=== PATIENT | female | born 1990 | race Caucasian/White ===

== ENCOUNTER 2020-01-19 19:38 | Emergency (ER) | payer MEDICAID ==
[~2020-01-19] VITALS: Ht 154.9 cm; Wt 56.7 kg
[2020-01-19 20:14] LABS: BASOPHILS % (AUTO) 0.5 % (0.0-2.0); HEMATOCRIT 38 % (33-45); HEMOGLOBIN 12.9 g/dL (11.5-14.8); LYMPHOCYTES # (AUTO) 3.4 /CMM (0.8-4.8); LYMPHOCYTES % (AUTO) 33.8 % (20.0-44.0); MEAN CORPUSCULAR HGB CONC 34 g/dl (31.0-36.0); MEAN CORPUSCULAR VOLUME 85 fL (82-100); MONOCYTES # (AUTO) 0.9 /CMM (0.1-1.30); MONOCYTES % (AUTO) 8.5 % (2.0-12.0); NEUTROPHILS # (AUTO) 5.3 /CMM (1.8-8.9); NEUTROPHILS % (AUTO) 52.2 % (43.0-81.0); PLATELET COUNT (AUTO) 294 /CMM (150-450); RED BLOOD CELL COUNT(AUTO) 4.43 MIL/uL (4.0-5.2); WHITE BLOOD COUNT (AUTO) 10.1 K/uL (4.3-11.0)
--- NOTE | 2020-01-19 20:21 | NUR ---
PT CAME TO THE ED C/O VAGINAL BLEEDING X 1 HOUR. +SMALL AMOUNT +BRIGHT PINK. PT STATES IT HAPPENED AFTER SEXUAL INTERCOURSE. . 7 WEEKS PREGANNT PER PT. LMP 11/29/19. PT AAOX4, VSS, RESPIRATIONS EVEN AND UNLABORED ON RA W/ NAD NOTED. PT CONNECTED TO THE MONITOR AND POX
[2020-01-19 20:25] LABS: CALCIUM, SERUM 8.4 mg/dL (8.5-10.1); CREATININE 0.7 mg/dL (0.6-1.3); POTASSIUM 3.4 mmol/L (3.5-5.1)
[2020-01-19 20:30] LABS: APPEARANCE,URINE Slightly Cloudy (CLEAR); BILIRUBIN,URINE Negative (NEGATIVE); COLOR,URINE Yellow (YELLOW); KETONES,URINE Negative (NEGATIVE); LEUKOCYTE ESTERASE ,URINE Small (NEGATIVE); NITRITE, URINE Positive (NEGATIVE); PH,URINE 7.5 (5.0-8.0); PROTEIN,URINE Trace mg/dl (NEGATIVE); UGLUCOSE Negative (NEGATIVE); UROBILINOGEN,URINE 0.2 EU/dL (0.2)
[2020-01-19 20:44] LABS: BACTERIA,URINE Many /HPF (None Seen); BLOOD, URINE TRACE Ery/uL (NEGATIVE); SQUAMOUS EPITHELIAL CELL,UR Moderate /HPF (None Seen)
--- NOTE | 2020-01-19 21:07 | NUR ---
NOT A [facility] CANDITATE PER LAB
--- NOTE | 2020-01-19 21:10 | NUR ---
ATTEMPTED TO CALL [facility] FOR DOWNSTAIRS MAID, NO ANSWER
[2020-01-19 21:50] VITALS: BP 115/82
--- NOTE | 2020-01-19 21:50 | NUR ---
Patient discharged to home in stable condition. Written and verbal after care instructions given. Patient verbalizes understanding of instruction.pt. ambulatory with a steady gait
== END 2020-01-19 21:51 | disposition home or self-care (01) ==
LOC: ER 19:40
DX: O20.0 Threatened abortion (principal); O20.8 Other hemorrhage in early pregnancy
CPT/HCPCS: 36415; 76805-TC; 80048-TC; 81000-TC; 84702-TC; 85025-TC; 87086-TC; 87186-TC

== ENCOUNTER 2020-01-27 13:07 | Emergency (ER) | payer MEDICAID ==
[~2020-01-27] VITALS: Ht 157.5 cm; Wt 60.3 kg
[2020-01-27 14:02] LABS: BASOPHILS % (AUTO) 0.2 % (0.0-2.0); EOSINOPHILS % (AUTO) 4.5 % (0.0-6.0); HEMATOCRIT 38 % (33-45); HEMOGLOBIN 12.9 g/dL (11.5-14.8); LYMPHOCYTES # (AUTO) 2.6 /CMM (0.8-4.8); LYMPHOCYTES % (AUTO) 30.6 % (20.0-44.0); MEAN CORPUSCULAR HGB CONC 34 g/dl (31.0-36.0); MEAN CORPUSCULAR VOLUME 86 fL (82-100); MONOCYTES # (AUTO) 0.7 /CMM (0.1-1.30); MONOCYTES % (AUTO) 7.8 % (2.0-12.0); NEUTROPHILS # (AUTO) 4.8 /CMM (1.8-8.9); NEUTROPHILS % (AUTO) 56.9 % (43.0-81.0); PLATELET COUNT (AUTO) 283 /CMM (150-450); RED BLOOD CELL COUNT(AUTO) 4.44 MIL/uL (4.0-5.2); WHITE BLOOD COUNT (AUTO) 8.4 K/uL (4.3-11.0)
[2020-01-27 14:06] LABS: APPEARANCE,URINE Clear (CLEAR); BILIRUBIN,URINE Negative (NEGATIVE); BLOOD, URINE Negative Ery/uL (NEGATIVE); COLOR,URINE Yellow (YELLOW); KETONES,URINE Negative (NEGATIVE); LEUKOCYTE ESTERASE ,URINE Negative (NEGATIVE); NITRITE, URINE Negative (NEGATIVE); PROTEIN,URINE Negative (NEGATIVE); UGLUCOSE Negative (NEGATIVE); UROBILINOGEN,URINE 0.2 EU/dL (0.2)
--- NOTE | 2020-01-27 15:00 | NUR ---
Ultrasound at Bedside
[2020-01-27 15:51] VITALS: BP 130/72
--- NOTE | 2020-01-27 15:51 | NUR ---
No Active Bleeding at this time for d/c Patient discharged to home in stable condition. Written and verbal after care instructions given. Patient verbalizes understanding of instruction.
== END 2020-01-27 16:23 | disposition home or self-care (01) ==
LOC: ER 13:12
DX: O20.0 Threatened abortion (principal); Z3A.01 Less than 8 weeks gestation of pregnancy
CPT/HCPCS: 36415; 76856-TC; 81000-TC; 84702-TC; 85025-TC

== ENCOUNTER 2020-06-21 17:09 | Emergency (ER) | payer MEDICAID ==
[~2020-06-21] VITALS: Ht 157.5 cm; Wt 59.0 kg
--- NOTE | 2020-06-21 19:14 | NUR ---
C/O ABD PAIN & LOWER BACK PAIN, 6 WKS . - VAG BLEEDING. PT AAOX4, VSS. RR EVEN & UNLABORED. DENIES CP, SOB, DIZZINESS, N/V AT THIS TIME. WILL CONT TO MONITOR.
[2020-06-21 19:26] LABS: BILIRUBIN,URINE Negative (NEGATIVE); BLOOD, URINE Negative Ery/uL (NEGATIVE); COLOR,URINE YELLOW (YELLOW); LEUKOCYTE ESTERASE ,URINE Small (NEGATIVE); NITRITE, URINE Negative (NEGATIVE); PH,URINE 7.5 (5.0-8.0); PROTEIN,URINE Negative (NEGATIVE); UGLUCOSE Negative (NEGATIVE)
[2020-06-21 19:41] LABS: BASOPHILS % (AUTO) 0.3 % (0.0-2.0); HEMATOCRIT 38 % (33-45); HEMOGLOBIN 12.5 g/dL (11.5-14.8); LYMPHOCYTES # (AUTO) 3.2 /CMM (0.8-4.8); LYMPHOCYTES % (AUTO) 37.2 % (20.0-44.0); MEAN CORPUSCULAR HGB CONC 33 g/dl (31.0-36.0); MEAN CORPUSCULAR VOLUME 84 fL (82-100); MONOCYTES # (AUTO) 0.6 /CMM (0.1-1.30); MONOCYTES % (AUTO) 7.1 % (2.0-12.0); NEUTROPHILS # (AUTO) 4.4 /CMM (1.8-8.9); NEUTROPHILS % (AUTO) 51.4 % (43.0-81.0); PLATELET COUNT (AUTO) 330 /CMM (150-450); RED BLOOD CELL COUNT(AUTO) 4.53 MIL/uL (4.0-5.2); WHITE BLOOD COUNT (AUTO) 8.5 K/uL (4.3-11.0)
[2020-06-21 19:54] LABS: CALCIUM, SERUM 8.8 mg/dL (8.5-10.1); CREATININE 0.6 mg/dL (0.6-1.3); POTASSIUM 3.8 mmol/L (3.5-5.1)
[2020-06-21 20:20] LABS: ALBUMIN 3.8 g/dL (3.4-5.0); BILIRUBIN,DIRECT 0.1 mg/dL (0.0-0.2); BILIRUBIN,TOTAL 0.2 mg/dL (0.2-1.0); TOTAL PROTEIN, SERUM 7.6 g/dL (6.4-8.2)
[2020-06-21 20:39] LABS: BACTERIA,URINE Many /HPF (None Seen); RBC,URINE 0-2 /HPF (0-2); SQUAMOUS EPITHELIAL CELL,UR Few /HPF (None Seen)
--- NOTE | 2020-06-21 21:08 | NUR ---
Patient discharged to home in stable condition. Written and verbal after care instructions given. Patient verbalizes understanding of instruction.
[2020-06-21 21:10] VITALS: BP 124/78
== END 2020-06-21 21:11 | disposition home or self-care (01) ==
LOC: ER 17:11
DX: O23.41 Unspecified infection of urinary tract in pregnancy, first trimester (principal); Z3A.01 Less than 8 weeks gestation of pregnancy
CPT/HCPCS: 36415; 76805-TC; 80048-TC; 80076-TC; 81001; 84702-TC; 85025-TC; 85730-TC

== ENCOUNTER 2020-06-29 16:46 | Emergency (ER) | payer MEDICAID ==
[~2020-06-29] VITALS: Ht 157.5 cm; Wt 59.0 kg
[2020-06-29] MEDS ORDERED: IV NS 0.9% 1,000 ML BAG IV ONE (17:30)
[2020-06-29 17:50] LABS: MEAN CORPUSCULAR VOLUME 83 fL (82-100)
[2020-06-29 17:55] LABS: CALCIUM, SERUM 8.6 mg/dL (8.5-10.1); CREATININE 0.5 mg/dL (0.6-1.3); POTASSIUM 3.8 mmol/L (3.5-5.1)
--- NOTE | 2020-06-29 17:55 | NUR ---
us at bedside
[2020-06-29 18:01] LABS: ALBUMIN 3.6 g/dL (3.4-5.0); BILIRUBIN,DIRECT 0.1 mg/dL (0.0-0.2); BILIRUBIN,TOTAL 0.2 mg/dL (0.2-1.0); TOTAL PROTEIN, SERUM 7.2 g/dL (6.4-8.2)
[2020-06-29 18:02] LABS: BASOPHILS % (AUTO) 0.2 % (0.0-2.0); EOSINOPHILS % (AUTO) 4.6 % (0.0-6.0); HEMATOCRIT 35 % (33-45); LYMPHOCYTES # (AUTO) 2.9 /CMM (0.8-4.8); LYMPHOCYTES % (AUTO) 30.7 % (20.0-44.0); MEAN CORPUSCULAR HGB CONC 34 g/dl (31.0-36.0); MONOCYTES # (AUTO) 0.6 /CMM (0.1-1.30); MONOCYTES % (AUTO) 6.8 % (2.0-12.0); NEUTROPHILS # (AUTO) 5.4 /CMM (1.8-8.9); NEUTROPHILS % (AUTO) 57.7 % (43.0-81.0); PLATELET COUNT (AUTO) 284 /CMM (150-450); RED BLOOD CELL COUNT(AUTO) 4.27 MIL/uL (4.0-5.2); WHITE BLOOD COUNT (AUTO) 9.4 K/uL (4.3-11.0)
--- NOTE | 2020-06-29 18:03 | NUR ---
AFTABCARITOCHELLY FROM HOME TO ER BED 12. AAOX4. NOT IN RESP DISTRESS, BREATHING EVEN AND UNLABORED. BROUGHT IN FOR A SYNCOPAL EPISODE AND FELL. PER PT, SHE FELT DIZZY AND PASSED OUT. HER WITNESSED THE EPISODE. DENIES ANY HEAD TRAUMA. DENIES ANY PAIN. PT REPROTS THAT SHE IS LMP WAS BACK IN . WAS AT THE BEDSIDE FOR EVAL. ORDERS RECEIVED, NOTED AND CARRIED OUT
[2020-06-29] MEDS ORDERED: IOHEXOL-350 100 ML VIAL IV ONE (18:07)
[2020-06-29] MEDS ORDERED: IV NS 0.9% 250 ML IV ONE (18:08)
[2020-06-29 19:13] LABS: BILIRUBIN,URINE NEGATIVE (NEGATIVE); BLOOD, URINE NEGATIVE Ery/uL (NEGATIVE); COLOR,URINE YELLOW (YELLOW); LEUKOCYTE ESTERASE ,URINE TRACE (NEGATIVE); NITRITE, URINE NEGATIVE (NEGATIVE); PH,URINE 7.5 (5.0-8.0); PROTEIN,URINE NEGATIVE (NEGATIVE); UGLUCOSE NEGATIVE (NEGATIVE); UROBILINOGEN,URINE 0.2 EU/dL (0.2)
[2020-06-29 19:25] LABS: BACTERIA,URINE 1+ /HPF (None Seen)
[2020-06-29 19:26] LABS: URINE AMORPHOUS PHOSPHATES Many /HPF (None Seen)
--- NOTE | 2020-06-29 19:39 | NUR ---
PT ENDORSED TO [facility] FOR GINGER
--- NOTE | 2020-06-29 20:31 | NUR ---
IV removed. Catheter intact and site benign. Pressure and 4x4 applied to site. No bleeding noted.
--- NOTE | 2020-06-29 20:31 | NUR ---
Patient discharged to home in stable condition. Written and verbal after care instructions given. Patient verbalizes understanding of instruction.
[2020-06-29 20:32] VITALS: BP 129/66
--- NOTE | 2020-06-29 20:33 | NUR ---
ULTRASOUND RESULTS PROVIDED.
== END 2020-06-29 20:33 | disposition home or self-care (01) ==
LOC: ER 16:48
DX: O26.891 Other specified pregnancy related conditions, first trimester (principal); R55 Syncope and collapse; E86.0 Dehydration; R42 Dizziness and giddiness; R51.9 Headache, unspecified; Z3A.01 Less than 8 weeks gestation of pregnancy
CPT/HCPCS: 36415; 71275; 76805; 80048; 80076; 81001; 84702; 85025; 85378; 87086; 93005; 96360; 99285; J7030; J7050; Q9967

== ENCOUNTER 2020-09-15 14:59 | Emergency (ER) | payer MEDICAID ==
[~2020-09-15] VITALS: Ht 157.5 cm; Wt 64.0 kg
--- NOTE | 2020-09-15 15:14 | NUR ---
called for tirage not in the waiting room
[2020-09-15 15:23] VITALS: BP 118/69
--- NOTE | 2020-09-15 15:40 | NUR ---
Patient came in to the er c/o covid + x 6 days, cough, fever, body aches and sob 99% on room air. Breathing evenly and unlabored. Kept comfortable, will cotninue to monitor accordingly.
--- NOTE | 2020-09-15 16:18 | NUR ---
Patient discharged to home in stable condition. Written and verbal after care instructions given. Patient verbalizes understanding of instruction.
== END 2020-09-15 16:17 | disposition home or self-care (01) ==
LOC: ER 15:06
DX: U07.1 COVID-19 (principal)